=== PATIENT | female | born 1955 | race American Indian/Alaskan Native ===

== ENCOUNTER 2018-04-16 10:14 | Emergency (ER) | payer MEDICAID, OTHER ==
[2018-04-16 11:01] VITALS: RESP 16
--- NOTE | 2018-04-16 11:28 | RAD ---
PROCEDURE: Radiographs of the Right Shoulder HISTORY: Rule out fracture. COMPARISON: No prior. FINDINGS: BONES: No evidence acute displaced fracture nor dislocation. The osseous structures appear intact. . JOINTS: Degenerative osteoarthritis right acromioclavicular joint. SOFT TISSUES: Small calcifications are seen within the soft tissues adjacent to the greater tuberosity consistent with calcific tendinitis. OTHER FINDINGS: None. IMPRESSION: No acute fractures. Mild degenerative osteoarthritis right acromioclavicular joint. Findings consistent with calcific tendinitis
[2018-04-16 11:31] VITALS: BP 131/83; PULSE 78; TEMP 98.3; O2SAT 99
--- NOTE | 2018-04-16 15:28 | C.PDOC ---
History Of Present Illness 62 year old female presents to the emergency department with complaints of right shoulder pain persisting for the last five years. Patient reports that her pain has increased in the past month, but she states she has not been taking pain medications. She reports that she visited her PMD for the pain, who referred her for an MRI but she missed her appointment. She denies recent trauma or fall. Chief Complaint (Nursing): Upper Extremity Problem/Injury History Per: Patient History/Exam Limitations: no limitations Onset/Duration Of Symptoms: Other (5 years) Current Symptoms Are (Timing): Still Present Quality: "Pain" Past Medical History Reviewed: Historical Data, Nursing Documentation, Vital Signs Vital Signs: Last Vital Signs Temp 98.3 F 04/16/18 11:29 Pulse 78 04/16/18 11:29 Resp 16 04/16/18 11:29 BP 131/83 04/16/18 11:29 Pulse Ox 99 04/16/18 15:49 - Medical History PMH: Back Problems, Diabetes, HTN, Hypercholesterolemia Surgical History: No Surg Hx Family History: States: No Known Family Hx - Social History Hx Tobacco Use: No Hx Alcohol Use: Yes Hx Substance Use: No - Immunization History Hx Tetanus Toxoid Vaccination: No Hx Influenza Vaccination: No Hx Pneumococcal Vaccination: No Review Of Systems Except As Marked, All Systems Reviewed And Found Negative. Musculoskeletal: Positive for: Shoulder Pain (right) Physical Exam - Physical Exam Appears: Non-toxic, No Acute Distress Skin: Warm, Dry Head: Atraumatic, Normacephalic Eye(s): bilateral: Normal Inspection Nose: Normal Neck: Supple, Other (diffuse tenderness to right neck) Chest: Symmetrical Cardiovascular: Rhythm Regular Respiratory: Normal Breath Sounds Extremity: Normal ROM, Tenderness (diffuse tenderness to right shoulder) Neurological/Psych: Oriented x3, Normal Speech, Normal Cognition ED Course And Treatment O2 Sat by Pulse Oximetry: 99 (RA) Pulse Ox Interpretation: Normal - Other Rad XR Right Shoulder X-Ray: Viewed By Me, Read By Radiologist Interpretation: IMPRESSION: No acute fractures. Mild degenerative osteoarthritis right acromioclavicular joint. Findings consistent with calcific tendinitis Progress Note: Plan: XR Right Shoulder Disposition - Disposition Referrals: [facility] Janie Franco, [Non-Staff] - Disposition: HOME/ ROUTINE Disposition Time: 11:15 Condition: GOOD Additional Instructions: JACIEL MCCARTHY, thank you for letting us take care of you today. Your provider was Nicholas Gomez DO and you were treated for SHOULDER PAIN. The emergency medical care you received today was directed at your acute symptoms. If you were prescribed any medication, please fill it and take as directed. It may take several days for your symptoms to resolve. Return to the Emergency Department if your symptoms worsen, do not improve, or if you have any other problems. Please contact your doctor or call one of the physicians/clinics you have been referred to that are listed on the Patient Visit Information form that is included in your discharge packet. Bring any paperwork you were given at discharge with you along with any medications you are taking to your follow up visit. Our treatment cannot replace ongoing medical care by a primary care provider outside of the emergency department. Thank you for allowing the [facility] team to be part of your care today. Follow up with your primary care doctor for further management. Prescriptions: Cyclobenzaprine [Cyclobenzaprine HCl] 10 mg PO Q8 PRN #20 tab PRN Reason: Muscle Spasm traMADol [Ultram] 50 mg PO Q8 PRN #15 tab PRN Reason: Pain, Severe (8-10) Instructions: Osteoarthritis (DC) Forms: [facility] (Portuguese) - Clinical Impression Clinical Impression: Osteoarthritis - Scribe Statement The provider has reviewed the documentation as recorded by the Scribe (Emmanuel George) Provider Attestation: All medical record entries made by the Scribe were at my direction and personally dictated by me. I have reviewed the chart and agree that the record accurately reflects my personal performance of the history, physical exam, medical decision making, and the department course for this patient. I have also personally directed, reviewed, and agree with the discharge instructions and disposition.
== END 2018-04-16 11:33 | disposition home or self-care (01) ==
LOC: C.ER 10:14
DX: M19.011 Primary osteoarthritis, right shoulder (principal)